=== PATIENT | male | born 1975 | race Caucasian/White ===

== ENCOUNTER 2018-01-28 08:15 | Emergency (ER) | payer SELFPAY ==
[~2018-01-28] VITALS: Ht 172.7 cm; Wt 80.0 kg
[2018-01-28 13:51] VITALS: BP 96/50
== END 2018-01-28 14:34 | disposition left against medical advice (07) ==
LOC: ED 14:30
DX: F10.229 Alcohol dependence with intoxication, unspecified (principal); F19.10 Other psychoactive substance abuse, uncomplicated; Z79.899 Other long term (current) drug therapy
CPT/HCPCS: 36415; 80307; 99283

== ENCOUNTER 2018-01-29 16:19 | Emergency (ER) | payer SELFPAY ==
[~2018-01-29] VITALS: Ht 177.8 cm; Wt 100.0 kg
[2018-01-29 16:23] VITALS: BP 119/59
== END 2018-01-29 17:01 | disposition left against medical advice (07) ==
LOC: ED 16:55
DX: Z53.21 Procedure and treatment not carried out due to patient leaving prior to being seen by health care provider (principal)

== ENCOUNTER 2018-06-25 17:37 | Emergency (ER) | payer SELFPAY ==
[~2018-06-25] VITALS: Ht 177.8 cm; Wt 105.0 kg
[2018-06-25] MEDS ORDERED: SODIUM CHLORIDE 0.9% 1,000ML IVBOLUS ONE (18:30)
[2018-06-25 18:49] LABS: CALCIUM 8.3 mg/dL (8.5-10.1); CHLORIDE 115 mmol/L (98-107)
[2018-06-25 18:58] LABS: ANION GAP 8 mmol/L (5-15); CREATININE 1.08 mg/dL (0.7-1.3)
[2018-06-26 06:40] VITALS: BP 134/87
== END 2018-06-26 09:12 | disposition home or self-care (01) ==
LOC: ED 06-26 09:06
DX: F10.129 Alcohol abuse with intoxication, unspecified (principal); Z79.899 Other long term (current) drug therapy
CPT/HCPCS: 36415; 70450; 80048; 80307; 99285; J7030

== ENCOUNTER 2018-06-26 17:15 | Emergency (ER) | payer SELFPAY ==
[~2018-06-26] VITALS: Ht 188 cm; Wt 110.0 kg
[2018-06-26 17:29] VITALS: BP 108/64
== END 2018-06-26 21:05 | disposition home or self-care (01) ==
LOC: ED 19:35
DX: F10.229 Alcohol dependence with intoxication, unspecified (principal); F17.200 Nicotine dependence, unspecified, uncomplicated
CPT/HCPCS: 36415; 80307; 99283

== ENCOUNTER 2018-06-27 01:57 | Emergency (ER) | payer SELFPAY ==
[~2018-06-27] VITALS: Ht 177.8 cm; Wt 96.7 kg
[2018-06-27] MEDS ORDERED: LIDOCAINE-MPF 1%, 5ML INFIL ONE (02:30)
[2018-06-27 02:39] LABS: BASOPHILS # (AUTO) 0.03 x10^3/uL (0-0.1); BASOPHILS % (AUTO) 1 % (0-1); EOSINOPHILS # (AUTO) 0.18 x10^3/uL (0-0.4); EOSINOPHILS % (AUTO) 3 % (1-7); LYMPHOCYTES # (AUTO) 2.87 x10^3/uL (1-3.4); LYMPHOCYTES % (AUTO) 42 % (22-44); MD NO; MEAN CORPUSCULAR HEMOGLOBIN 33.7 pg (27.5-34.5); MEAN CORPUSCULAR HGB CONC 34.3 g/dL (33.2-36.2); MEAN CORPUSCULAR VOLUME 98.2 fL (81-97); MEAN PLATELET VOLUME 7.8 fL (7.4-10.4); MONOCYTES # (AUTO) 0.76 x10^3/uL (0.2-0.8); MONOCYTES % (AUTO) 11 % (2-9); NEUTROPHILS # (AUTO) 2.97 x10^3/uL (1.8-6.8); NEUTROPHILS % (AUTO) 44 % (42-75); PLATELET COUNT 212 x10^3/uL (130-400); RED BLOOD COUNT 4.61 x10^6/uL (4.38-5.82); RED CELL DISTRIBUTION WIDTH 13.7 % (9.4-14.8)
[2018-06-27 02:51] LABS: ALANINE AMINOTRANSFERASE 79 U/L (12-78); ALBUMIN 3.7 g/dL (3.4-5.0); ANION GAP 7 mmol/L (5-15); CALCIUM 7.7 mg/dL (8.5-10.1); CHLORIDE 110 mmol/L (98-107)
[2018-06-27 02:53] LABS: ALKALINE PHOSPHATASE 43 U/L (45-117); BILIRUBIN,TOTAL 0.5 mg/dL (0.2-1.0); SALICYLATE LEVEL < 1.7 mg/dL (2.8-20.0)
[2018-06-27 02:54] LABS: TOTAL PROTEIN 7.6 g/dL (6.4-8.2)
[2018-06-27 02:56] LABS: ACETAMINOPHEN < 2 mcg/mL (10-30)
[2018-06-27] MEDS ORDERED: LIDOCAINE-MPF 2%, 2ML ONE (03:56)
[2018-06-27] MEDS ORDERED: DIPH,PERTUSS(ACELL),TET VAC/PF 0.5 ML IM-VACC ONE ×2 (04:30→04:52)
[2018-06-27 08:35] VITALS: BP 124/74
== END 2018-06-27 08:37 | disposition home or self-care (01) ==
LOC: ED 02:56
DX: S01.111A Laceration without foreign body of right eyelid and periocular area, initial encounter (principal); F10.20 Alcohol dependence, uncomplicated; Z79.899 Other long term (current) drug therapy; W01.0XXA Fall on same level from slipping, tripping and stumbling without subsequent striking against object, initial encounter; Y93.89 Activity, other specified; Y92.410 Unspecified street and highway as the place of occurrence of the external cause; Y99.8 Other external cause status
CPT/HCPCS: 12051; 36415; 70450; 70486; 72125; 80053; 80307; 80329; 85025; 90471; 90715; G0480

== ENCOUNTER 2019-06-28 22:10 | Emergency (ER) | payer MEDICAID, OTHER ==
[~2019-06-28] VITALS: Ht 177.8 cm; Wt 100.0 kg
[2019-06-29 03:09] VITALS: BP 115/60
== END 2019-06-29 03:44 | disposition home or self-care (01) ==
LOC: ED 06-29 03:16
DX: F10.220 Alcohol dependence with intoxication, uncomplicated (principal); Z72.9 Problem related to lifestyle, unspecified
CPT/HCPCS: 99283

== ENCOUNTER 2019-07-02 07:57 | Emergency (ER) | payer MEDICAID ==
[~2019-07-02] VITALS: Ht 177.8 cm; Wt 102.0 kg
[2019-07-02 08:03] VITALS: BP 123/84
== END 2019-07-02 08:49 | disposition home or self-care (01) ==
LOC: ED 08:35
DX: F10.129 Alcohol abuse with intoxication, unspecified (principal); Y90.9 Presence of alcohol in blood, level not specified; F41.9 Anxiety disorder, unspecified; Z72.9 Problem related to lifestyle, unspecified
CPT/HCPCS: 99283

== ENCOUNTER 2019-07-22 14:16 | Day surgery (SDC) | payer MEDICAID ==
[~2019-07-22] VITALS: Ht 177.8 cm; Wt 104.0 kg
[2019-07-22] MEDS ORDERED: LACTATED RINGERS 1,000 ML IV SCH (14:41)
[2019-07-22 14:42] VITALS: BP 106/67
[2019-07-22] MEDS ORDERED: [UNRECOGNIZED DRUG - REMARK] (15:13)
[2019-07-22] MEDS ORDERED: FENTANYL PF 250 MCG/5ML ONE (15:57)
[2019-07-22] MEDS ORDERED: MIDAZOLAM 1 MG/ML, 2ML ONE (15:57)
[2019-07-22] MEDS ORDERED: BUPIVACAINE/EPI 0.5% 1:200K ONE (16:05)
[2019-07-22] MEDS ORDERED: NEOSPORIN OINT, 15GM ONE (16:05)
[2019-07-22] MEDS ORDERED: ROCURONIUM 10MG/ML,5ML ONE (16:27)
[2019-07-22] MEDS ORDERED: CEFAZOLIN 1,000 MG ONE (16:27)
[2019-07-22] MEDS ORDERED: SUCCINYLCHOLINE 20 MG/ML, 10ML ONE (16:27)
[2019-07-22] MEDS ORDERED: DEXAMETHASONE 4 MG/ML, 1ML ONE (16:27)
[2019-07-22] MEDS ORDERED: ONDANSETRON 2MG/ML, 2ML ONE (16:27)
[2019-07-22] MEDS ORDERED: PROPOFOL 50 ML ONE (16:52)
[2019-07-22] MEDS ORDERED: FENTANYL PF 100 MCG/2ML IV PRN (17:30)
[2019-07-22] MEDS ORDERED: MEPERIDINE/PF 25MG/ML,1ML IVPush PRN (17:30)
[2019-07-22] MEDS ORDERED: DIAZEPAM 5 MG/ML, 10ML VIAL IVPush PRN (17:30)
[2019-07-22] MEDS ORDERED: MIDAZOLAM 1 MG/ML, 2ML IV PRN (17:30)
[2019-07-22] MEDS ORDERED: ONDANSETRON 2MG/ML, 2ML IV PRN (17:30)
[2019-07-22] MEDS ORDERED: MORPHINE SULFATE 4 MG/ML, 1ML IVPush PRN (17:30)
[2019-07-22] MEDS ORDERED: ONDANSETRON ODT 8 MG PO PRN (17:30)
[2019-07-22] MEDS ORDERED: OXYcodone 5 MG/5 ML ORAL.SOL UDC PO PRN (17:30)
[2019-07-22] MEDS ORDERED: PROMETHAZINE 25 MG/ML, 1ML IV PRN (17:30)
[2019-07-22] MEDS ORDERED: DIPHENHYDRAMINE 50 MG/ML, 1ML IVPush PRN (17:30)
[2019-07-22] MEDS ORDERED: EPHEDRINE 50 MG/ML, 1ML IM PRN (17:30)
[2019-07-22] MEDS ORDERED: EPHEDRINE 50 MG/ML, 1ML IVPush PRN (17:30)
== END 2019-07-22 20:50 | disposition home or self-care (01) ==
LOC: OR 14:16 → 4NE 19:12 → OR 20:50
PROVIDERS: ATTEND Orthopaedic Surgery
DX: S82.841A Displaced bimalleolar fracture of right lower leg, initial encounter for closed fracture (principal); S93.04XA Dislocation of right ankle joint, initial encounter; Z72.89 Other problems related to lifestyle; Z88.8 Allergy status to other drugs, medicaments and biological substances; W17.89XA Other fall from one level to another, initial encounter; Y93.89 Activity, other specified; Y92.89 Other specified places as the place of occurrence of the external cause; Y99.8 Other external cause status
CPT/HCPCS: 27814; 73600; C1713; J0330; J0690; J1100; J2250; J2405; J2704; J3010; J7120; 76000; G0378